=== PATIENT | female | born 1990 | race Hispanic/Latino ===

== ENCOUNTER 2017-06-24 17:19 | Emergency (ER) | payer MEDICARE ==
[2017-06-24 18:17] LABS: RAPID GROUP A STREP NEGATIVE (NEGATIVE)
== END 2017-06-24 18:49 | disposition home or self-care (01) ==
LOC: EDH 17:19
DX: J10.1 Influenza due to other identified influenza virus with other respiratory manifestations (principal); Z88.1 Allergy status to other antibiotic agents
CPT/HCPCS: 87804; 87880

== ENCOUNTER 2017-08-26 05:57 | Emergency (ER) | payer MEDICARE ==
[2017-08-26 06:11] LABS: APPEARANCE,URINE Clear (CLEAR); BILIRUBIN,URINE Negative (NEGATIVE); COLOR,URINE Yellow (YELLOW); GLUCOSE, URINE (UA) Negative (NEGATIVE); KETONES,URINE 40 mg/dL (NEGATIVE); LEUKOCYTE ESTERASE ,URINE Trace (NEGATIVE); NITRATE,URINE Negative (NEGATIVE); OCCULT BLOOD,URINE Trace (NEGATIVE); PH,URINE 5.5 (5.0-8.0); PROTEIN,URINE Negative (NEGATIVE)
[2017-08-26 06:12] LABS: HCG,QUAL RESULT NEGATIVE (NEGATIVE)
[2017-08-26] MEDS ORDERED: SODIUM CHLORIDE 0.9% 1000ML 1,000 ML IV ONE (06:12)
[2017-08-26] MEDS ORDERED: ONDANSETRON ODT 4 MG TAB ONE (06:12)
[2017-08-26 06:20] LABS: BASOPHILS % (AUTO) 0.2 % (0.0-5.0); EOSINOPHILS % (AUTO) 0.2 % (0.0-8.0); HEMATOCRIT 38.1 % (36-48); LYMPHOCYTES % (AUTO) 3.2 % (21.0-51.0); MEAN CORPUSCULAR HEMOGLOBIN 24.3 pg (27.0-33.0); MEAN CORPUSCULAR VOLUME 73.7 fL (79-99); MONOCYTES % (AUTO) 2.8 % (3.0-13.0); NEUTROPHILS % (AUTO) 93.6 % (40.0-77.0); PLATELET COUNT (AUTO) 276 K/uL (130-400); RED BLOOD CELL COUNT(AUTO) 5.16 MIL/uL (4.00-5.50); RED CELL DISTRIBUTION WIDTH 15.5 % (11.0-15.5); WHITE BLOOD COUNT (AUTO) 14.1 K/uL (4.8-10.8)
[2017-08-26 06:30] LABS: BACTERIA,URINE Rare /HPF (None Seen); MUCUS,URINE Many LPF (None Seen); RBC,URINE None Seen /HPF (0-1); SQUAMOUS EPITHELIAL CELL,UR Moderate /HPF (0-2); WBC,URINE 0-1 /HPF (0-1)
[2017-08-26 06:32] LABS: CREATININE 0.7 mg/dL (0.5-1.5); POTASSIUM 3.7 mmol/L (3.5-5.1)
[2017-08-26 06:43] LABS: ALBUMIN 3.8 g/dL (3.5-5.0); BILIRUBIN,TOTAL 0.6 mg/dL (0.2-1.0); TOTAL PROTEIN, SERUM 8.3 g/dL (6.0-8.3)
[2017-08-26] MEDS ORDERED: IOPAMIDOL-370 75 ML VIAL IV ONE (06:44)
[2017-08-26] MEDS ORDERED: SUCRALFATE 1 GM TABLET ONE (07:54)
[2017-08-26] MEDS ORDERED: FAMOTIDINE 20MG TAB 20 MG TAB ONE (07:54)
[2017-08-26] MEDS ORDERED: DICYCLOMINE HCL 20 MG TAB ONE (08:00)
== END 2017-08-26 09:49 | disposition home or self-care (01) ==
LOC: EDH 05:57
DX: T62.8X1A Toxic effect of other specified noxious substances eaten as food, accidental (unintentional), initial encounter (principal); E86.0 Dehydration; R10.13 Epigastric pain; Z88.1 Allergy status to other antibiotic agents; Y92.89 Other specified places as the place of occurrence of the external cause
CPT/HCPCS: 36415; 74177; 80053; 81001; 81025; 82150; 83690; 85025; 96360; 96361; 99285; J7030; Q9967

== ENCOUNTER 2017-10-31 15:35 | Emergency (ER) | payer MEDICARE ==
[2017-10-31] MEDS ORDERED: TETANUS/DIPHTHERIA TOXOID [ADULT] 0.5 ML VIAL IM ONE (16:06)
[2017-10-31] MEDS ORDERED: ACETAMINOPHEN-CODEINE 300/30MG TAB ONE (16:07)
[2017-10-31] MEDS ORDERED: CEPHALEXIN 500 MG CAPSULE ONE (16:07)
== END 2017-10-31 16:17 | disposition home or self-care (01) ==
LOC: EDH 15:35
DX: S91.332A Puncture wound without foreign body, left foot, initial encounter (principal); W45.0XXA Nail entering through skin, initial encounter; Y93.89 Activity, other specified; Y92.098 Other place in other non-institutional residence as the place of occurrence of the external cause; Y99.8 Other external cause status
CPT/HCPCS: 73630; 90471; 90472; 90714